=== PATIENT | female | born 1960 | race African-American/Black ===

== ENCOUNTER → 2016-10-27 | Outpatient (CLI) | payer SELFPAY ==
[~2016-10-27] MED LIST: B COMPLEX1 TAB PO; DITROPAN5 MG PO; LISINOPRIL-HCTZ1 T20 PO; NEURONTIN300 MG PO; OMEPRAZOLE40 M1 PO; TENORMIN50 MG PO
== END | disposition home or self-care (01) ==
LOC: CBAR 13:56
DX: Z01.818 Encounter for other preprocedural examination (principal); E66.01 Morbid (severe) obesity due to excess calories
CPT/HCPCS: G0463

== ENCOUNTER → 2016-11-14 | Outpatient (CLI) | payer OTHER ==
--- NOTE | ~2016-11-14 | CR63 ---
[facility] A Service of [facility] & [facility] RADIOLOGY TEXT RESULTS PATIENT: CRISTIAN SELLERS LOCATION: [facility] : 64 UNIT #: [id number] AGE: [address]: Good Mccray MD SEX: F ORDER DR: [id number] [facility] [address] [place], [place] [address] [id number] O MR#: [id number] Acc #: [id number] NAME: CRISTIAN SELLERS : 1960 SEX: F STUDY DATE/TIME: 11/14/2016 8:11 UNIT: [facility] ROOM: STUDY DESCRIPTION: CR Chest 2 View Attending Physician: Good Mccray M.D. Ordering Physician: Good Mccray M.D. Primary Care Physician: Belinda Badillo M.D. MEDICAL IMAGING REPORT This report is preliminary unless electronic signature is present EXAM Chest, 11/14/2016, [facility]. HISTORY 56-year-old woman preop clearance for adjustable lap-band placement. Cough, short of air. COMPARISON Chest none. FINDINGS PA and lateral chest views show mild cardiac enlargement. Hilar structures and mediastinal contours are preserved. Bilateral lungs are expanded and clear. IMPRESSION Mild cardiomegaly. No acute chest finding. Dictated by... Darvin Briceno M.D. THIS IS AN ELECTRONICALLY VERIFIED REPORT Darvin Briceno M.D. at 11/14/2016 11:33 AM TENZIN/kaykay TD: 11/14/2016 09:32 JOB #: [id number] MEDICAL IMAGING REPORT Page 1 of 1 COPY
--- NOTE | ~2016-11-14 | EKG ---
PATIENT: CRISTIAN SELLERS UNIT #: [id number] Ventricular Rate: 63 BPM Atrial Rate: 63 BPM P-R Interval: 154 ms QRS Duration: 80 ms Q-T Interval: 390 ms QTC Calculation(Bezet): 399 ms P Whately: 47 degrees Calculated R Whately: 31 degrees Calculated T Whately: 8 degrees Diagnosis Line: Normal sinus rhythm Diagnosis Line: Normal ECG Diagnosis Line: No previous ECGs available Diagnosis Line: Confirmed by GILES FLORES MD ([id number]) on 11/17/2016 Diagnosis Line: 10:44:50 PM INTERPRETING MD: SANDRA COWAN
--- NOTE | ~2016-11-14 | CR97 ---
[facility] A Service of [facility] & [facility] RADIOLOGY TEXT RESULTS PATIENT: CRISTIAN SELLERS LOCATION: [facility] : 64 UNIT #: [id number] AGE: [address]: Good Mccray MD SEX: F ORDER DR: [id number] [facility] [address] [place], [place] [address] [id number] O MR#: [id number] Acc #: [id number] NAME: CRISTIAN SELLERS : 1960 SEX: F STUDY DATE/TIME: 11/14/2016 8:35 UNIT: [facility] ROOM: STUDY DESCRIPTION: CR Esophagram Attending Physician: Good Mccray M.D. Ordering Physician: Good Mccray M.D. Primary Care Physician: Belinda Badillo M.D. MEDICAL IMAGING REPORT This report is preliminary unless electronic signature is present EXAM Barium esophagram. INDICATIONS Preoperative examination prior laparoscopic gastric band surgery. TECHNIQUE Patient was administered thin barium and multiple thorascopic images were obtained. FINDINGS Thoracic esophagus is of normal caliber. I do not see any evidence of stricture or mass lesion. Esophageal motility appears to be within normal limits, I do think the patient has a small sliding hiatal hernia. No reflux was seen. Total fluoroscopy time 0.7 minutes and a total of 10 fluoroscopic images were obtained. IMPRESSION Tiny sliding hiatal hernia, otherwise unremarkable exam. Dictated by... Laxmi Smith M.D. THIS IS AN ELECTRONICALLY VERIFIED REPORT Laxmi Smith M.D. at 11/17/2016 4:45 PM AFF/dj TD: 11/17/2016 11:03 JOB #: [id number] MEDICAL IMAGING REPORT Page 1 of 1 COPY
[2016-11-14 09:49] LABS: HEMATOCRIT 41.2 % (35.0-45.0); HEMOGLOBIN 13.6 gm/dL (12.0-16.0); MEAN CELL VOLUME 92.8 FL (83-96); MEAN CORPUSCULAR HEMOGLOBIN 30.6 PG (28-34); MEAN PLATELET VOLUME 8.9 FL (6.5-11.5); RED BLOOD COUNT 4.45 X10e (3.90-5.30); RED CELL DISTRIBUTION WIDTH 13.7 % (11.0-15.5); WHITE BLOOD COUNT 7.8 X10e3 (4.0-10.5)
[2016-11-14 11:07] LABS: ALBUMIN SERUM 4.2 g/dL (3.5-5.0); BILIRUBIN,TOTAL 0.7 mg/dL (0.2-2.0); CALCIUM SERUM 8.6 mg/dL (8.4-10.2); CREATININE SERUM 0.8 mg/dL (0.6-1.4); POTASSIUM 3.9 mmol/L (3.5-5.1); PROTEIN TOTAL SERUM 7.4 g/dL (6.0-8.3)
== END | disposition home or self-care (01) ==
LOC: CRAD 07:48
PROVIDERS: Surgery
DX: Z01.818 Encounter for other preprocedural examination (principal); K44.9 Diaphragmatic hernia without obstruction or gangrene; I51.7 Cardiomegaly
CPT/HCPCS: 36415; 71020; 74220; 80053; 80061; 84443; 85027; 93005

== ENCOUNTER → 2016-11-26 | Day surgery (SDC) | payer OTHER ==
--- NOTE | ~2016-11-26 | OR ---
Unit #: [id number] #: [id number] Patient: CRISTIAN SELLERS [id number] [address] [address] [id number] O MR#: [id number] NAME: CRISTIAN SELLERS ROOM: Date of Procedure: 11/26/2016 Admission Date: 11/26/2016 Surgeon: Good Mccray M.D. : 1960 Attending Physician: Good Mccray M.D. Referring Physician: Good Mccray M.D. Primary Care Physician: Belinda Badillo M.D. OPERATIVE REPORT PREOPERATIVE DIAGNOSIS Chronic morbid obesity, body mass index of 33. POSTOPERATIVE DIAGNOSES 1. Chronic morbid obesity, body mass index of 33. 2. Paraesophageal hiatal hernia. PROCEDURES PERFORMED 1. Laparoscopic adjustable gastric band. 2. Laparoscopic paraesophageal hiatal hernia repair. 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 ANESTHESIA General endotracheal anesthesia. ESTIMATED BLOOD LOSS Minimal. IV FLUIDS 800 crystalloid. COMPLICATIONS None. INDICATIONS FOR PROCEDURE The patient is a young lady with chronic morbid obesity. DESCRIPTION OF PROCEDURE The patient was taken to the operating room and placed in supine position. General anesthesia was induced. The abdomen was prepped and draped. A 3-cm incision was then made left of the midline. A 10-mm Visiport was then placed intraabdominal under direct vision. The abdomen was insufflated to 15 mmHg with CO2. The patient was then placed in a steep reversed Trendelenburg. General inspection of the abdomen revealed what appeared to be a paraesophageal hernia. This was identified with a defect at the diaphragm using anterior palpation with the instrument. We then made a small incision in the subxiphoid region. A Nely liver retractor was then placed intraabdominal and used to retract the left lobe of the liver upward to further expose the paraesophageal hernia and GE junction. I then placed a 5-mm port in the right upper quadrant, a 10-mm Unit #: [id number] #: [id number] Patient: CRISTIAN SELLERS port in the left upper quadrant, and another 5-mm port in the left lower quadrant. The stomach was retracted medial and downward. Upon retracting the stomach, we took down the paraesophageal ligament, exposing the right and left marcos at the paraesophageal hernia. Any hernia sac was reduced. We then repaired the paraesophageal hernia using interrupted #0 Ethibond sutures in a [id number] type fashion. This formed a snug repair to the anterior esophagus. We then retracted the stomach medially and further exposed the angle of His using Bovie electrocautery. The stomach was then retracted laterally. We then took down the hepatogastric ligament with Bovie electrocautery. This exposed the right marcos. Using blunt dissection, I created a retrogastric tunnel from this point to the angle of His. The band was then placed intraabdominal through the 10-mm port site. This was then brought through the retrogastric tunnel in a pars flaccida technique. The band was then closed anteriorly to form a 20-mL to 25-mL anterior gastric pouch. The fundus was then secured to the anterior pouch to prevent movement around the stomach using two interrupted #0 Ethibond sutures. A third suture was then used as a gathering stitch from the lesser curve to the anterior stomach, gathering and imbricating the remaining fundus of the stomach. The tubing was then brought out through the midline 10-mm port site. All ports and the Nely liver retractor were removed under direct vision with no evidence of abdominal hemorrhage. A polypropylene mesh was then secured to the posterior face of the laparoscopic band port. This was secured using #0 Ethibond suture. This was then cut to shape. The port was then connected to the tubing and placed into a subcutaneous pocket just anterior to the rectus sheath. Its position was then confirmed. All tubing was then placed intraabdominal. The wounds were then closed with interrupted 4-0 Vicryl. The patient tolerated the procedure well and was sent to the recovery room in good condition. Dictated by... Noel Boo/deon TD: 11/26/2016 20:14 JOB #: [id number] OPERATIVE REPORT Page 1 of 1 X Good Mccray MD X PROCEDURE OPERATIVE NOTE
--- NOTE | ~2016-11-26 | CR7 ---
[facility] A Service of [facility] & [facility] RADIOLOGY TEXT RESULTS PATIENT: CRISTIAN SELLERS LOCATION: [facility] : 64 UNIT #: [id number] AGE: [address]: Good Mccray MD SEX: F ORDER DR: [id number] [facility] [address] [place], [place] [address] [id number] O MR#: [id number] Acc #: [id number] NAME: CRISTIAN SELLERS : 1960 SEX: F STUDY DATE/TIME: 11/26/2016 10:23 UNIT: [facility] ROOM: STUDY DESCRIPTION: CR Abdomen Single AP View Attending Physician: Good Mccray M.D. Referring Physician: Good Mccray M.D. Ordering Physician: Good Mccray M.D. Primary Care Physician: Belinda Badillo M.D. MEDICAL IMAGING REPORT This report is preliminary unless electronic signature is present EXAM KUB, 11/26/2016 INDICATION Gastric band placement today. Morbid obesity. FINDINGS Supine view of the abdomen was obtained. Gastric band is present with a phi angle of 57 degrees. Port is in the left lower quadrant. Bowel gas pattern normal. IMPRESSION Gastric band in place with a phi angle of 57 degrees. Dictated by... Omero Stephens Jr., M.D. THIS IS AN ELECTRONICALLY VERIFIED REPORT Omero Stephens Jr., M.D. at 11/26/2016 3:54 PM KAYLANI/ritchie TD: 11/26/2016 11:49 JOB #: [id number] MEDICAL IMAGING REPORT Page 1 of 1 COPY
== END | disposition home or self-care (01) ==
LOC: CSUR 06:11
DX: E66.01 Morbid (severe) obesity due to excess calories (principal); K44.9 Diaphragmatic hernia without obstruction or gangrene; M19.90 Unspecified osteoarthritis, unspecified site; Z68.33 Body mass index [BMI] 33.0-33.9, adult; Z79.899 Other long term (current) drug therapy; Z90.89 Acquired absence of other organs; Z98.51 Tubal ligation status; Z98.890 Other specified postprocedural states
CPT/HCPCS: 74000; C1781; J0690; J1650; J1885; J2250; J2370; J2405; J2710; J3010